=== PATIENT | male | born 1940 | race Caucasian/White ===

== ENCOUNTER → 2016-07-08 | Outpatient (CLI) | payer MEDICARE, OTHER ==
[~2016-07-08] MED LIST: ACET325T51 PO; AMIO200T2 PO; ASPI-558 PO; ATOR40TA64 PO; BUDE0.5A6 ORAL INH; CALC500T7 PO CHEW; CLOP75TA PO; CYAN10009 PO; DABI150C PO; DOCU-168 PO; FAMO-137 PO; FOLI1TAB15 PO; HYDR28.465; MAG-65; NITR0.4T39 SL; POLY17PO6 PO; TEMA7.5C20 PO; TOLT4CAP PO; TRAM50TA53 PO
--- NOTE | 2016-07-08 15:13 | DI ---
INDICATION: ITS.REASON: R07.2 Precordial pain PROCEDURE: CHEST 2-VIEWS UPRIGHT (PA \T\ LAT) Encounter: Initial COMPARISON: March 13, 2016 FINDINGS: The lungs are clear without evidence of focal abnormal airspace opacity. There is no pleural effusion or pneumothorax. Interval CABG. The heart size, mediastinal contours and pulmonary vascularity are within normal limits. Old healed left posterior rib fractures. IMPRESSION: No acute cardiopulmonary disease. .
== END ==
LOC: IMA 14:27
PROVIDERS: ATTEND Internal Medicine Cardiovascular Disease
DX: R07.2 Precordial pain (principal); Z91.81 History of falling